=== PATIENT | male | born 1950 | race Caucasian/White ===

== ENCOUNTER 2022-02-09 06:33 | Emergency (ER) | payer MEDICARE, SELFPAY ==
--- NOTE | ~2022-02-09 | XR_ITS ---
EXAMINATION: XR CHEST CLINICAL INFORMATION: Cough COMPARISON: None TECHNIQUE: 2 views of the chest were obtained. FINDINGS: There is some hazy density seen overlying the right lung base which may relate to atelectasis with no confluent airspace disease appreciated. Heart normal size. No evidence of pulmonary edema. No pneumothorax or pleural effusion. XR/XR chest 2V IMPRESSION: No significant acute parenchymal disease.
[2022-02-09 07:39] VITALS: BP 124/70; PULSE 87; RESP 16; TEMP 37.2; O2SAT 95; BMI 33.1
[2022-02-09 09:15] VITALS: PULSE 78; RESP 14; TEMP 36.5; O2SAT 97
[2022-02-09 09:52] LABS: COVID-19 Test Negative (Negative); Influenza A Negative (Negative); Influenza B2 Negative (Negative)
--- NOTE | 2022-02-09 09:57 | ECG_ITS ---
Test Reason : SOB Blood Pressure : / mmHG Vent. Rate : 080 BPM Atrial Rate : 080 BPM P-R Int : 172 ms QRS Dur : 098 ms QT Int : 384 ms P-R-T Axes : 009 -49 006 degrees QTc Int : 442 ms Normal sinus rhythm Left anterior fascicular block Abnormal ECG No previous ECGs available Referred By: Román Wharton Electronically Signed By:WILLIAMS TRAORE MD
[2022-02-09 10:12] VITALS: BP 142/93; PULSE 63; RESP 12; O2SAT 97
--- NOTE | 2022-02-09 10:35 | ED_ITS ---
HPI - General Adult General Chief complaint: General Medical Stated complaint: fever, SoB, history of heart attack Time Seen by Provider: 02/09/22 09:44 History of Present Illness HPI narrative: Patient complains of 1 week of coughing, a development of chest pain with exertion over the last week when he walks 1 flight of stairs, and shortness of breath with exertion when he walks 1 flight of stairs The last time this happened was yesterday 24 hours ago, at this time he is not short of breath or experiencing chest pain The cough is productive He does have a history of heart attack in the past and has had stents placed Related Data Allergies Allergy/AdvReac Type Severity Reaction Status Date / Time No Known Allergies Allergy Verified 02/09/22 09:44 Review of Systems Review of Systems: Positive for chest pain on exertion, shortness of breath on exertion and a cough productive of sputum Negatives are no fever no chills no dizziness no fainting no confusion no feeling faint no headache no neck pain no palpitations no abdominal pain no nausea or vomiting no leg swelling no calf pain or swelling, no numbness no weakness of muscles Yes all other systems are reviewed and are negative PMFSH Past Medical History Source: nursing notes reviewed Medical History (Updated 02/09/22 @ 14:57 by XIOMARA Nguyen) Myocardial infarction Social History Social History Alcohol intake: unknown Patient Tobacco Use Status: Never used Tobacco Use of substances other than those prescribed or required for medical reasons: No Advance Directives: Yes Advance Directives Information Provided: Yes Advance Directives on File: No Physical Exam ED Vital Signs: Vital Signs - 24 hr 02/09/22 07:39 02/09/22 09:15 02/09/22 10:12 Temperature 98.9 F 97.7 F Pulse Rate 87 78 63 Respiratory Rate 16 14 12 Blood Pressure 124/70 142/93 H Pulse Oximetry 95 97 97 Oxygen Delivery Method Room Air Room Air Room Air BMI result Body Mass Index 33.1 General appearance is comfortable no distress The eyes pupils equal round reactive to light extraocular motions are intact, the nose no sinus tenderness no congestion The pharynx is clear without redness swelling or exudate The neck is supple The chest is clear to auscultation bilateral without chest wall tenderness Heart no murmur auscultated Abdomen soft nontender Extremities full range of motion x4 Leg exam there is no edema, there is no calf swelling or tenderness Skin no rash Neuro no focal motor sensory deficits, patient is A&O x3, interaction both expression and comprehension are normal, gait and balance are normal Course Course Course Narrative: Patient remains comfortable and stable throughout ER visit EKG was a normal sinus rhythm with a rate of 80, QRS duration 98 GA interval 172 QT was normal EKG did show left anterior fascicle block and left axis deviation There were no acute ST changes no acute T-wave changes no ST depressions, no evidence of acute ischemia on EKG, no old EKG for comparison CBC showed platelet count of 127, low, hemoglobin and hematocrit were 13.6 and 39.4 No acute findings in the chemistry, B and P was 90 normal Two troponins were checked both were under 3.5 D-dimer was in the normal range at 203, less than 230 Case was discussed with Dr. Deluna who agreed patient could be discharged if close follow-up with Cardiology I called Dr. Pope on-call for [facility] where the patient is followed, he agreed with 2- troponins but a concerning history that the patient should be followed closely this week but did not need to be admitted at this time Chest x-ray was negative Patient likely has a viral infection with his cough but more important and needs to full cardiac evaluation for his increasing shortness of breath with exertion and chest pain with exertion Medical Decision Making Lab Data Lab results reviewed: Yes I reviewed the patient's lab results. Result diagrams: 02/09/22 11:12 02/09/22 11:41 Labs: Lab Results 02/09/22 02/09/22 02/09/22 Range/Units 09:23 09:23 10:29 WBC (4.8-10.8) X10*3/uL RBC (4.60-5.80) X10*6/uL Hgb (14.0-18.0) g/dl Hct (42.0-52.0) % MCV (80.0-98.0) fL MCH (27.0-33.0) pg MCHC (31.0-36.0) g/dl RDW (11.0-16.0) % Plt Count (160-400) X10*3/uL MPV (9.4-12.4) fL Immature Gran % (Auto) (0.0-0.4) % Neut % (Auto) (45-73) % Lymph % (Auto) (20-40) % Isabella % (Auto) (2-11) % Eos % (Auto) (0-4) % Baso % (Auto) (0-2) % Lymph # (Auto) (1.2-4.9) X10*3/uL [place]abella # (Auto) (0.1-1.2) X10*3/uL Eos # (Auto) (0.0-0.4) X10*3/uL Baso # (Auto) (0.0-0.2) X10*3/uL Abs Immat Gran (auto) (0.00-0.03) X10*3/uL Absolute Neuts (auto) (2.0-8.3) x10*3/uL Absolute Nucleated RBC (0.0-0.012) X10*3/uL Nucleated RBC % (auto) (0.0-0.2) /100WBC D-Dimer High Sensitivty NG/ML Sodium (135-145) mmol/L Potassium (3.3-5.1) mmol/L Chloride (96-108) mmol/L Carbon Dioxide (22-29) mmol/L Anion Gap (12-20) BUN (9-16) mg/dL Creatinine (0.5-1.4) mg/dL Estim Creat Clear Calc Estimated GFR Random Glucose (60-115) mg/dL Calcium (8.4-10.2) mg/dL Troponin I High Sens (<3.5-35.0) ng/L B-Natriuretic Peptide (<100) pg/mL COVID-19 (LONA) Negative (Negative) COVID-19 Clin Com See Note Influenza Type A (MILES) Negative (Negative) Influenza Type B (MILES) Negative (Negative) Influenza A & B Note See Note S. pyogenes GrpA MILES Negative (Negative) 02/09/22 02/09/22 02/09/22 Range/Units 11:12 11:12 11:12 WBC 11.4 H (4.8-10.8) X10*3/uL RBC 4.29 L (4.60-5.80) X10*6/uL Hgb 13.6 L (14.0-18.0) g/dl Hct 39.4 L (42.0-52.0) % MCV 91.8 (80.0-98.0) fL MCH 31.7 (27.0-33.0) pg MCHC 34.5 (31.0-36.0) g/dl RDW 13.0 (11.0-16.0) % Plt Count 127 L (160-400) X10*3/uL MPV 9.7 (9.4-12.4) fL Immature Gran % (Auto) 0.4 (0.0-0.4) % Neut % (Auto) 78.2 H (45-73) % Lymph % (Auto) 11.8 L (20-40) % Isabella % (Auto) 8.9 (2-11) % Eos % (Auto) 0.4 (0-4) % Baso % (Auto) 0.3 (0-2) % Lymph # (Auto) 1.4 (1.2-4.9) X10*3/uL Isabella # (Auto) 1.0 (0.1-1.2) X10*3/uL Eos # (Auto) 0.1 (0.0-0.4) X10*3/uL Baso # (Auto) 0.0 (0.0-0.2) X10*3/uL Abs Immat Gran (auto) 0.05 H (0.00-0.03) X10*3/uL Absolute Neuts (auto) 8.9 H (2.0-8.3) x10*3/uL Absolute Nucleated RBC 0.000 (0.0-0.012) X10*3/uL Nucleated RBC % (auto) 0.0 (0.0-0.2) /100WBC D-Dimer High Sensitivty 203 NG/ML Sodium (135-145) mmol/L Potassium (3.3-5.1) mmol/L Chloride (96-108) mmol/L Carbon Dioxide (22-29) mmol/L Anion Gap (12-20) BUN (9-16) mg/dL Creatinine (0.5-1.4) mg/dL Estim Creat Clear Calc Estimated GFR Random Glucose (60-115) mg/dL Calcium (8.4-10.2) mg/dL Troponin I High Sens < 3.5 (<3.5-35.0) ng/L B-Natriuretic Peptide 90 (<100) pg/mL COVID-19 (LONA) (Negative) COVID-19 Clin Com Influenza Type A (MILES) (Negative) Influenza Type B (MILES) (Negative) Influenza A & B Note S. pyogenes GrpA MILES (Negative) 02/09/22 02/09/22 Range/Units 11:41 14:00 WBC (4.8-10.8) X10*3/uL RBC (4.60-5.80) X10*6/uL Hgb (14.0-18.0) g/dl Hct (42.0-52.0) % MCV (80.0-98.0) fL MCH (27.0-33.0) pg MCHC (31.0-36.0) g/dl RDW (11.0-16.0) % Plt Count (160-400) X10*3/uL MPV (9.4-12.4) fL Immature Gran % (Auto) (0.0-0.4) % Neut % (Auto) (45-73) % Lymph % (Auto) (20-40) % Isabella % (Auto) (2-11) % Eos % (Auto) (0-4) % Baso % (Auto) (0-2) % Lymph # (Auto) (1.2-4.9) X10*3/uL Isabella # (Auto) (0.1-1.2) X10*3/uL Eos # (Auto) (0.0-0.4) X10*3/uL Baso # (Auto) (0.0-0.2) X10*3/uL Abs Immat Gran (auto) (0.00-0.03) X10*3/uL Absolute Neuts (auto) (2.0-8.3) x10*3/uL Absolute Nucleated RBC (0.0-0.012) X10*3/uL Nucleated RBC % (auto) (0.0-0.2) /100WBC D-Dimer High Sensitivty NG/ML Sodium 140 (135-145) mmol/L Potassium 4.7 (3.3-5.1) mmol/L Chloride 107 (96-108) mmol/L Carbon Dioxide 26 (22-29) mmol/L Anion Gap 12 (12-20) BUN 16 (9-16) mg/dL Creatinine 0.97 (0.5-1.4) mg/dL Estim Creat Clear Calc 79.6 Estimated GFR > 60 Random Glucose 103 (60-115) mg/dL Calcium 8.5 (8.4-10.2) mg/dL Troponin I High Sens < 3.5 (<3.5-35.0) ng/L B-Natriuretic Peptide (<100) pg/mL COVID-19 (LONA) (Negative) COVID-19 Clin Com Influenza Type A (MILES) (Negative) Influenza Type B (MILES) (Negative) Influenza A & B Note S. pyogenes GrpA MILES (Negative) Discharge Plan Discharge Clinical Impression: Chest pain, Shortness of breath, Cough Patient Disposition: Home, Self-Care Additional Instructions: I called the health and wellness advisor at [facility], Dr. Pope He said when [facility] cardiology closed [facility] took over the care of those patients He said you would be seen in an urgent appointment this week because of your symptoms of chest pain with exertion and shortness of breath with exertion So call [facility] phone Today we did not find signs of a heart attack, EKG and troponin testing was okay But we are worried these symptoms could be warning signs so do not exert heavily follow closely with cardiologists Most important if you get more chest pain return to the ER Interventions: ED Discharge Assessment Last Done: 02/09/22 15:04 Discharge Date/Time: 02/09/22 15:05
[2022-02-09 10:48] LABS: IDNOW Serial# 08D9AD1C; Strep A Nucleic Acid Negative (Negative)
[2022-02-09 11:17] LABS: MANUAL DIFF FLAG NO
[2022-02-09] MEDS: Aspirin 81 MG TAB.CHEW PO (11:19)
[2022-02-09 11:20] LABS: Basophils Percent Auto 0.3 % (0-2); Eosinophils Absolute Auto 0.1 X10*3/uL (0.0-0.4); Eosinophils Percent Auto 0.4 % (0-4); Hematocrit 39.4 % (42.0-52.0); Hemoglobin 13.6 g/dl (14.0-18.0); Imm Gran Abs Auto 0.05 X10*3/uL (0.00-0.03); Imm Gran Pct Auto 0.4 % (0.0-0.4); Lymphocytes Absolute Auto 1.4 X10*3/uL (1.2-4.9); Lymphocytes Percent Auto 11.8 % (20-40); Mean Corpuscular HGB Conc 34.5 g/dl (31.0-36.0); Mean Corpuscular Hemoglobin 31.7 pg (27.0-33.0); Mean Corpuscular Volume 91.8 fL (80.0-98.0); Mean Platelet Volume 9.7 fL (9.4-12.4); Monocytes Percent Auto 8.9 % (2-11); Neutrophils Absolute Auto 8.9 x10*3/uL (2.0-8.3); Neutrophils Percent Auto 78.2 % (45-73); Platelet Count 127 X10*3/uL (160-400); Red Blood Count 4.29 X10*6/uL (4.60-5.80); White Blood Count 11.4 X10*3/uL (4.8-10.8)
--- NOTE | 2022-02-09 11:21 | PC.NURSE ---
pt alert and oriented x 3. states has some SOB. Lungs clear. Pt swabbed for covid, flu, strep. Later conversation with PA suggests chest pain with exertion, also diaphoresis per patient and daughter. Pt moved [place] [facility] [place] and workup. Charge nurse made aware. Family aware of change in approach.
--- NOTE | 2022-02-09 11:27 | PC.NURSE ---
vital signs: BP 138/79; HR 69; SAO2 97%, RR 21. CM shows NSR
[2022-02-09 11:41] LABS: D Dimer High Sensitivity 203 NG/ML
[2022-02-09 11:47] LABS: B Type Natriuretic Peptide 90 pg/mL (<100); Troponin-I High Sensitivity < 3.5 ng/L (<3.5-35.0)
[2022-02-09 12:01] LABS: Anion Gap 12 (12-20); Blood Urea Nitrogen 16 mg/dL (9-16); Calcium 8.5 mg/dL (8.4-10.2); Carbon Dioxide 26 mmol/L (22-29); Chloride 107 mmol/L (96-108); Creatinine Clr Calc Pharmacy 79.6; Estimated Glomerular Filt Rate > 60; Glucose Random 103 mg/dL (60-115); Potassium 4.7 mmol/L (3.3-5.1); Sodium 140 mmol/L (135-145)
[2022-02-09 14:24] LABS: Troponin-I High Sensitivity < 3.5 ng/L (<3.5-35.0)
--- NOTE | 2022-02-09 14:46 | PC.NURSE ---
pulse 78, o2 97 room air, resp 21, blood pressure 158/85 right upper arm supine. temp 98.4 oral SG
== END 2022-02-09 15:05 | disposition home or self-care (01) ==
PROVIDERS: Physician Assistant Medical; Emergency Provider Emergency Medicine
DX: R07.9 Chest pain, unspecified (principal); R06.02 Shortness of breath; R05.9 Cough, unspecified; Z20.822 Contact with and (suspected) exposure to COVID-19
CPT/HCPCS: 36415; 71046; 80048; 83880; 84484; 85025; 85379; 87502; 87635; 87651; 93005; 99283; 99284

== ENCOUNTER 2022-02-25 19:02 | Emergency (ER) | payer MEDICARE, SELFPAY | END 2022-02-25 19:29 | disposition left against medical advice (07) | PROVIDERS: Emergency Provider Emergency Medicine | DX: S81.819A Laceration without foreign body, unspecified lower leg, initial encounter (principal); X58.XXXA Exposure to other specified factors, initial encounter; Y93.9 Activity, unspecified; Y92.9 Unspecified place or not applicable; Y99.9 Unspecified external cause status ==

== ENCOUNTER → 2022-12-31 07:29 | Outpatient (BNVA) | payer MEDICARE, SELFPAY | PROVIDERS: PCP Internal Medicine; Visit Provider Psychiatry & Neurology Neurology | DX: G50.0 Trigeminal neuralgia (principal) | CPT/HCPCS: 99202 ==

== ENCOUNTER 2023-02-05 15:50 | Outpatient (REF) | payer MEDICARE, SELFPAY ==
--- NOTE | ~2023-02-05 | MR_ITS ---
EXAMINATION: MR BRAIN WITHOUT AND WITH CONTRAST CLINICAL INFORMATION: Trigeminal neuralgia COMPARISON: None TECHNIQUE: Multiplanar multisequence MR imaging of the brain was obtained without and following the administration of 10 mL Gadavist intravenous contrast. FINDINGS: There is no vascular compression of the cisternal segments of the trigeminal nerves. The CSF in Meckel's cave is preserved. The foramina ovale are normal. No cerebellopontine angle lesion is seen. There is no abnormal leptomeningeal enhancement corresponding to basilar cisterns. The third division of the trigeminal nerve is normal along its course in the cnc machinist 2nd shift spaces. No marrow signal abnormality is seen within the mandible. There is no abnormal enhancement or edematous change corresponding to the second division of the trigeminal nerve within the infraorbital foramen or at the level of foramen rotundum. The cavernous sinuses opacify symmetrically. The orbits are normal. There is no acute infarct on diffusion-weighted imaging. No extra-axial collection or mass effect/herniation. There are several scattered foci of nonspecific supratentorial white matter T2/FLAIR signal abnormality. No hydrocephalus. The ventricles are normal in morphology and size. No abnormal parenchymal or extra-axial enhancement. The major flow voids at the skull base are preserved. The midline structures are normal. The cerebellar tonsils are normally positioned. The craniocervical junction is normal. Marrow signal is within normal limits. The visualized soft tissues are without significant abnormality. No signal abnormality within the paranasal sinuses or within the mastoid air cells. MR/MR head/brain wo/w con IMPRESSION: Unremarkable contrast-enhanced MRI of the brain. No abnormality along the course of the trigeminal nerves.
== END 2023-02-05 15:51 | disposition home or self-care (01) ==
LOC: HO.MRI 15:50
PROVIDERS: PCP Internal Medicine; Visit Provider Psychiatry & Neurology Neurology
DX: G50.0 Trigeminal neuralgia (principal)
CPT/HCPCS: 70553; A9585

== ENCOUNTER 2023-02-14 14:10 | Emergency (ER) | payer MEDICARE, SELFPAY ==
--- NOTE | ~2023-02-14 | XR_ITS ---
EXAMINATION: XR CHEST CLINICAL INFORMATION: Shortness of breath COMPARISON: Chest x-ray February 09, 2022 TECHNIQUE: Frontal view of the chest was obtained. FINDINGS: Cardiac silhouette is normal in size. The lungs are adequately aerated. Subtle linear opacities within the right lung base are nonspecific but most suggestive of atelectasis. There is a subtle patchy opacity projecting over the right midlung which is nonspecific. No pleural effusion. No pneumothorax. XR/XR chest 1V IMPRESSION: Subtle patchy opacity projecting over the right midlung is nonspecific but suspected to represent atelectasis. A developing infiltrate is also within the differential. Follow-up imaging recommended status post treatment to ensure resolution. Cross-sectional imaging can also be obtained at this time if felt clinically indicated.
--- NOTE | 2023-02-14 14:20 | ECG_ITS ---
Test Reason : SOB Blood Pressure : / mmHG Vent. Rate : 075 BPM Atrial Rate : 075 BPM P-R Int : 172 ms QRS Dur : 098 ms QT Int : 384 ms P-R-T Axes : 004 -57 005 degrees QTc Int : 428 ms Normal sinus rhythm Left anterior fascicular block Abnormal ECG When compared with ECG of 09-FEB-2022 06:56, No significant change was found Referred By: William Contreras Electronically Signed By:Yannick Ohara
[2023-02-14 15:25] LABS: MANUAL DIFF FLAG NO
[2023-02-14 15:28] LABS: Basophils Percent Auto 0.3 % (0-2); Eosinophils Percent Auto 0.3 % (0-4); Hemoglobin 13.7 g/dl (14.0-18.0); Imm Gran Abs Auto 0.03 X10*3/uL (0.00-0.03); Imm Gran Pct Auto 0.5 % (0.0-0.4); Lymphocytes Absolute Auto 0.7 X10*3/uL (1.2-4.9); Lymphocytes Percent Auto 12.1 % (20-40); Mean Corpuscular HGB Conc 34.3 g/dl (31.0-36.0); Mean Corpuscular Hemoglobin 31.3 pg (27.0-33.0); Mean Corpuscular Volume 91.3 fL (80.0-98.0); Mean Platelet Volume 9.1 fL (9.4-12.4); Monocytes Absolute Auto 0.5 X10*3/uL (0.1-1.2); Monocytes Percent Auto 7.5 % (2-11); Neutrophils Absolute Auto 4.8 x10*3/uL (2.0-8.3); Neutrophils Percent Auto 79.3 % (45-73); Platelet Count 111 X10*3/uL (160-400); Red Blood Count 4.38 X10*6/uL (4.60-5.80); Red Cell Distribution Width 12.3 % (11.0-16.0)
[2023-02-14 15:29] VITALS: BP 140/83; PULSE 81; RESP 16; TEMP 37.5; O2SAT 95; BMI 35.2
--- NOTE | 2023-02-14 15:29 | ED_ITS ---
HPI - General Adult General Chief complaint: Upper Respiratory Symptoms Stated complaint: Diff Breathing Time Seen by Provider: 02/14/23 18:18 Source: patient and family Mode of arrival: ambulatory Limitations: no limitations History of Present Illness HPI narrative: 72 yo male with hx of CAD, HTN, HLD here with not feeling well fevers, chills and sick contact post travel to [place] stayed in hotel. has dry cough as well. 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, doesn't feel well Onset (ago): day(s) (1) Severity: mild Relieving factors: none Exacerbating factors: none Associated symptoms: cough, fever/chills and malaise Treatments prior to arrival: none Related Data Home Medications Medication Instructions Recorded Confirmed aspirin 81 mg tablet,delayed 81 mg PO DAILY 12/31/22 12/31/22 release atorvastatin 80 mg tablet 80 mg PO DAILY 12/31/22 12/31/22 lisinopril 10 mg tablet 10 mg PO DAILY 12/31/22 12/31/22 metoprolol succinate 25 mg 25 mg PO DAILY 12/31/22 12/31/22 tablet,extended release 24 hr Previous Rx's Medication Instructions Recorded carbamazepine 200 mg 200 mg PO BID #60 tabs 12/31/22 tablet,extended release,12 hr (Tegretol XR) levofloxacin 750 mg tablet 750 mg PO DAILY #6 tabs 02/14/23 Allergies Allergy/AdvReac Type Severity Reaction Status Date / Time No Known Allergies Allergy Verified 02/14/23 15:31 Review of Systems Review of Systems: Constitutional : pos Fever, pos Chills, No Fatigue ENT/Mouth : No sore throat, No Rhinorrhea Eyes: No Eye Pain, No Swelling, No Redness Cardiovascular : No Chest Pain, No SOB, No Dyspnea on Exertion Respiratory : pos Cough, No Sputum Gastrointestinal : No Nausea, No Vomiting, No Diarrhea, No abdominal Pain Genitourinary : No Dysuria, No Urinary Frequency, No Hematuria, Musculoskeletal : No joint pain, No Myalgias, No Joint Swelling Skin : No Skin Lesions, No rash Neuro : No Weakness, No Numbness, No Dizziness, positive Headache All other systems reviewed and are negative [facility] Past Medical History Attestation statement: The following information was validated with the patient. Medical History CAD (coronary artery disease) CVA (cerebral vascular accident) GERD (gastroesophageal reflux disease) HTN (hypertension) Hyperlipidemia Myocardial infarction MIKE on CPAP Prostate cancer Surgical History Hx of appendectomy Family History Family History (Updated 12/31/22 @ 07:48 by Flora Henao CMA) Father Cancer Mother Hypertension Brother Cancer Social History Social History Alcohol intake: never Patient Tobacco Use Status: Never used Tobacco Advance Directives: No Advance Directives Information Provided: No Physical Exam ED Vital Signs: Vital Signs - 24 hr 02/14/23 15:29 02/14/23 19:07 Temperature 99.5 F Pulse Rate 81 84 Respiratory Rate 16 18 Blood Pressure 140/83 H 144/90 H Pulse Oximetry 95 95 Oxygen Delivery Method Room Air Room Air BMI result Body Mass Index 35.2 Appearance: Alert. Oriented X3. No acute distress. Eyes: Pupils equal, round and reactive to light. ENT: Pharynx normal. Neck: Normal inspection. Neck supple. CVS: Normal heart rate and rhythm. Pulses normal. Respiratory: No respiratory distress. Breath sounds mildly diminished R lung ba se Abdomen: Soft and nontender. Skin: Skin warm and dry. Normal skin color. Normal skin turgor. Extremities: No lower extremity edema. No calf ttp Neuro: Oriented X 3. No motor deficit. No sensory deficit. Course Course Course Narrative: This is an RME: Additional HPI, ROS, PE not included below will be deferred to primary provider. 72 year old male presents w/ subjective fevers, cough, cp X a few days. Concerned for pna. No known sick contacts. No SOB, nausea, vomiting, diarrhea. Plan- labs, imaging, ekg Reevaluation(s) Reevaluation #1: CURB 65 score is 1 Medications Administered Discontinued Medications Generic Name Dose Route Start Last Admin Trade Name Freq PRN Reason Stop Dose Admin Levofloxacin 750 mg 02/14/23 18:36 02/14/23 18:55 Levofloxacin 750 Mg Tablet PO 02/14/23 18:37 750 mg ONCE ONE Administration Medical Decision Making Medical Decision Making MDM Narrative: 72 yo male with hx of CAD, HTN, HLD went on vacation and comes back from [place] with cough, fevers, not feeling well but tolerating PO and no diff breathing he has a dry cough did stay in hotel room with air conditioner - young 3 year old family member with similar symptoms. Labs ordered and stable, O2 normal, COVID negative he has no CP - EKG nonischemic at this time given CXR will cover with levofloxacin concern for legionella will DC home with precautions. Differential Diagnosis Differential Diagnoses: The differential diagnosis associated with the presentation includes viral syndrome, legionella, pneumonia Admission/Observation Consideration of admission/observation: Escalation of care including admi ssion/observation considered no hypoxia, tolerating PO, not toxic appearing stable for outpatient management has no diabetes or underlying lung disease Lab Data MDM Lab Attestation statement: I reviewed the patient's lab results. 02/14/23 15:16 02/14/23 15:16 Labs: Lab Results 02/14/23 02/14/23 02/14/23 Range/Units 15:16 15:16 15:16 WBC 6.0 (4.8-10.8) X10*3/uL RBC 4.38 L (4.60-5.80) X10*6/uL Hgb 13.7 L (14.0-18.0) g/dl Hct 40.0 L (42.0-52.0) % MCV 91.3 (80.0-98.0) fL MCH 31.3 (27.0-33.0) pg MCHC 34.3 (31.0-36.0) g/dl RDW 12.3 (11.0-16.0) % Plt Count 111 L (160-400) X10*3/uL MPV 9.1 L (9.4-12.4) fL Immature Gran % (Auto) 0.5 H (0.0-0.4) % Neut % (Auto) 79.3 H (45-73) % Lymph % (Auto) 12.1 L (20-40) % [place] % (Auto) 7.5 (2-11) % Eos % (Auto) 0.3 (0-4) % Baso % (Auto) 0.3 (0-2) % Lymph # (Auto) 0.7 L (1.2-4.9) X10*3/uL [place] # (Auto) 0.5 (0.1-1.2) X10*3/uL Eos # (Auto) 0.0 (0.0-0.4) X10*3/uL Baso # (Auto) 0.0 (0.0-0.2) X10*3/uL Abs Immat Gran (auto) 0.03 (0.00-0.03) X10*3/uL Absolute Neuts (auto) 4.8 (2.0-8.3) x10*3/uL Absolute Nucleated RBC 0.000 (0.0-0.012) X10*3/uL Nucleated RBC % (auto) 0.0 (0.0-0.2) /100WBC Sodium 136 (135-145) mmol/L Potassium 4.8 (3.3-5.1) mmol/L Chloride 105 (96-108) mmol/L Carbon Dioxide 24 (22-29) mmol/L Anion Gap 12 (12-20) BUN 16 (9-16) mg/dL Creatinine 1.09 (0.5-1.4) mg/dL Estim Creat Clear Calc 69.6 Estimated GFR > 60 Random Glucose 103 (60-115) mg/dL Calcium 9.4 D (8.4-10.2) mg/dL Magnesium 1.9 (1.6-2.6) mg/dL Total Bilirubin 0.4 (0.0-1.0) mg/dL AST 27 (5-37) U/L ALT 16 (0-40) U/L Alkaline Phosphatase 105 (39-117) U/L Troponin I High Sens 3.3 (<3.5-35.0) ng/L B-Natriuretic Peptide (<100) pg/mL Total Protein 7.8 (6.5-8.0) g/dL Albumin 3.7 (3.5-5.0) g/dL COVID-19 (LONA) (Negative) COVID-19 Clin Com 02/14/23 02/14/23 Range/Units 15:16 15:16 WBC (4.8-10.8) X10*3/uL RBC (4.60-5.80) X10*6/uL Hgb (14.0-18.0) g/dl Hct (42.0-52.0) % MCV (80.0-98.0) fL MCH (27.0-33.0) pg MCHC (31.0-36.0) g/dl RDW (11.0-16.0) % Plt Count (160-400) X10*3/uL MPV (9.4-12.4) fL Immature Gran % (Auto) (0.0-0.4) % Neut % (Auto) (45-73) % Lymph % (Auto) (20-40) % [place] % (Auto) (2-11) % Eos % (Auto) (0-4) % Baso % (Auto) (0-2) % Lymph # (Auto) (1.2-4.9) X10*3/uL [place] # (Auto) (0.1-1.2) X10*3/uL Eos # (Auto) (0.0-0.4) X10*3/uL Baso # (Auto) (0.0-0.2) X10*3/uL Abs Immat Gran (auto) (0.00-0.03) X10*3/uL Absolute Neuts (auto) (2.0-8.3) x10*3/uL Absolute Nucleated RBC (0.0-0.012) X10*3/uL Nucleated RBC % (auto) (0.0-0.2) /100WBC Sodium (135-145) mmol/L Potassium (3.3-5.1) mmol/L Chloride (96-108) mmol/L Carbon Dioxide (22-29) mmol/L Anion Gap (12-20) BUN (9-16) mg/dL Creatinine (0.5-1.4) mg/dL Estim Creat Clear Calc Estimated GFR Random Glucose (60-115) mg/dL Calcium (8.4-10.2) mg/dL Magnesium (1.6-2.6) mg/dL Total Bilirubin (0.0-1.0) mg/dL AST (5-37) U/L ALT (0-40) U/L Alkaline Phosphatase (39-117) U/L Troponin I High Sens (<3.5-35.0) ng/L B-Natriuretic Peptide 34 (<100) pg/mL Total Protein (6.5-8.0) g/dL Albumin (3.5-5.0) g/dL COVID-19 (LONA) Negative (Negative) COVID-19 Clin Com See Note Independent Interpretation I performed an independent interpretation of an: EKG and Plain X-Ray (R lung opacity) Interpretation: Rate: 75 Rhythm: NSR [place]: left Normal P waves. Normal ILAN. Normal QRS complex. ST T wave : inverted t wave III, no LUIS qTC: normal prior studies: no acute ischemia The study has been interpreted contemporaneously by me. . Radiology Impression Discussion of test interpretation with radiology: I have reviewed the radiologist's reading. Independent Historian Clinical information obtained from an independent historian. History obtained from or confirmed by: Other External Record Review External record reviewed: Office record Prescription Management I considered prescription management with: Antibiotic Discharge Plan Discharge Clinical Impression: Pneumonia Patient Disposition: Home, Self-Care Instructions: Community Acquired Pneumonia (ED) Additional Instructions: return for worsening symptoms, fevers, difficulty breathing, chest pain, poor oral intake or any other concerns. take a probiotic while on antibiotics. levofloxacin can cause tendon issues do not perform strenuous exercise Prescriptions: New levofloxacin 750 mg tablet 750 mg PO DAILY Qty: 6 0RF Rx Instructions: start on 02/13 No Action metoprolol succinate 25 mg tablet extended release 24 hr 25 mg PO DAILY aspirin 81 mg tablet,delayed release (DR/EC) 81 mg PO DAILY lisinopril 10 mg tablet 10 mg PO DAILY atorvastatin 80 mg tablet 80 mg PO DAILY carbamazepine [Tegretol XR] 200 mg tablet extended release 12 hr 200 mg PO BID Qty: 60 2RF Interventions: ED Discharge Assessment Last Done: 02/14/23 19:08 Discharge Date/Time: 02/14/23 19:10
[2023-02-14 15:55] LABS: B Type Natriuretic Peptide 34 pg/mL (<100)
[2023-02-14 15:57] LABS: Troponin-I High Sensitivity 3.3 ng/L (<3.5-35.0)
[2023-02-14 16:04] LABS: Alanine Aminotransferase 16 U/L (0-40); Albumin Level 3.7 g/dL (3.5-5.0); Alkaline Phosphatase 105 U/L (39-117); Anion Gap 12 (12-20); Aspartate Amino Transferase 27 U/L (5-37); Bilirubin Total 0.4 mg/dL (0.0-1.0); Blood Urea Nitrogen 16 mg/dL (9-16); Calcium 9.4 mg/dL (8.4-10.2); Carbon Dioxide 24 mmol/L (22-29); Chloride 105 mmol/L (96-108); Creatinine Clr Calc Pharmacy 69.6; Estimated Glomerular Filt Rate > 60; Glucose Random 103 mg/dL (60-115); Magnesium 1.9 mg/dL (1.6-2.6); Potassium 4.8 mmol/L (3.3-5.1); Sodium 136 mmol/L (135-145); Total Protein 7.8 g/dL (6.5-8.0)
[2023-02-14 16:43] LABS: COVID-19 Test Negative (Negative); IDNOW Serial# 08D9AD1C
[2023-02-14] MEDS: levoFLOXacin 750 MG TABLET PO (18:55)
[2023-02-14 19:07] VITALS: BP 144/90; PULSE 84; RESP 18; O2SAT 95
== END 2023-02-14 19:10 | disposition home or self-care (01) ==
PROVIDERS: Physician Assistant; Emergency Provider Emergency Medicine
DX: J18.9 Pneumonia, unspecified organism (principal); I10 Essential (primary) hypertension; E78.5 Hyperlipidemia, unspecified; Z20.822 Contact with and (suspected) exposure to COVID-19; Z86.73 Personal history of transient ischemic attack (TIA), and cerebral infarction without residual deficits; Z85.46 Personal history of malignant neoplasm of prostate; Z79.82 Long term (current) use of aspirin; Z79.899 Other long term (current) drug therapy
CPT/HCPCS: 71045; 80053; 83735; 83880; 84484; 85025; 87635; 93005; 99283; 99284

== ENCOUNTER → 2023-02-14 14:20 | Outpatient (BNV) | payer MEDICARE, SELFPAY | PROVIDERS: Emergency Provider Emergency Medicine; Visit Provider Internal Medicine Cardiovascular Disease | DX: I44.4 Left anterior fascicular block (principal); R94.31 Abnormal electrocardiogram [ECG] [EKG] | CPT/HCPCS: 93010 ==

== ENCOUNTER → 2023-02-25 10:52 | Outpatient (BNVA) | payer MEDICARE, SELFPAY | PROVIDERS: Visit Provider Psychiatry & Neurology Neurology | DX: G50.0 Trigeminal neuralgia (principal) | CPT/HCPCS: 99212 ==

== ENCOUNTER 2023-02-25 10:54 | Outpatient (AMB) | payer MEDICARE, SELFPAY ==
--- NOTE | 2023-02-25 10:54 | A.OFFVIS_ITS ---
Intake Vital Signs 02/25/23 10:55 Height 5 ft 8 in Weight 223 lb BMI 33.9 BP 110/80 Blood Pressure Location Rt brachial Position Sitting Pulse 75 Pulse Source Pulse Oximeter Pulse Oximetry (%) 96 Oxygen Delivery Method Room Air Intake Visit Reasons: f/u NEURALGIA - LVM to r/s MD off Intake Note: Pt presents as a f/u for Neuralgia. Differential Repairer Required: No Allergies No Known Allergies Allergy (Verified 02/25/23 11:00) Medication List - Last Reconciled 02/25/23 by Madeline Baron MD aspirin 81 mg PO DAILY atorvastatin 80 mg PO DAILY carbamazepine ER (Tegretol XR) 200 mg PO BID levofloxacin 750 mg PO DAILY lisinopril 10 mg PO DAILY metoprolol succinate ER 25 mg PO DAILY HPI HPI Comments History of Present Illness Details 72y/o Kuwaiti speaking male comes for follow up of trigeminal neuralgia. His daughter helps with today evaluation.He responded to tegretol 200mg bid with no pain until 1 week ago the pain has recurred. MRI brain with gildardo is normal. Labs were normal It started about 1 year ago as an episodic pain but now it is a constant pain for past 4 months. He describes the pain as electric shock like pain in his left nasolabial area. The pain is worse when he touches , shaving, cold air, chewing, brushing his teeth etc. He went to a dentist - he did not think it was dental..He denies any double vision, speech issues, vertigo , dysphagia etc. He denies any tongue numbness. He has h/o MIKE on CPAP. He has h/o CVA - /30 years ago . [facility] Medical History CAD (coronary artery disease) CVA (cerebral vascular accident) GERD (gastroesophageal reflux disease) HTN (hypertension) Hyperlipidemia Myocardial infarction MIKE on CPAP Prostate cancer Surgical History Hx of appendectomy Family History Father Cancer Mother Hypertension Brother Cancer Social History Alcohol intake: never Patient Tobacco Use Status: Never used Tobacco Physical Exam Vital Signs: Last Vital Signs Pulse 75 02/25/23 10:55 BP 110/80 02/25/23 10:55 Pulse Ox 96 02/25/23 10:55 Oxygen Delivery Method Room Air 02/25/23 10:55 BMI result Body Mass Index 33.9 Const General: cooperative, healthy appearing and comfortable Nutritional Appearance: overweight Orientation/consciousness: patient oriented x3 Neuro Other: hyperesthesia in left upper lip, nasolabial area General: patient oriented x3, tone normal, moves all extremities and no focal motor deficits Cranial nerves: Yes Facial sensation intact/muscles of mastication intact, Yes Bilaterally intact EOM present, Yes Nystagmus not present, Yes Normal facial strength present, Yes Midline tongue present, Yes Symmetric palate elevation present and Yes Ability to bilaterally elevate shoulders present Cognition (Neuro): normal cognition Gait exam (Neuro): Normal gait present Motor exam (neuro): 5/5 motor strength present throughout and Normal motor muscle tone present throughout Coordination: [id number] test normal Assessment & Plan Assessment & Plan (1) Trigeminal neuralgia: Comment: left V 2 Code(s): G50.0 - Trigeminal neuralgia Plan Increase tegretol XR 200mg qama nd 400mg qhs and f/u will monitor sodium and CBC Medications: Changed From carbamazepine ER (Tegretol XR) 200 mg PO BID 60 tabs 2RF To carbamazepine ER (Tegretol XR) 1 tab qama nd 2 tabs qhs orally 2 times a day; 90 tabs 3RF Coding Level of Care Code Est Pt Level 4 (22404) Diagnoses Trigeminal neuralgia G50.0
[2023-02-25 10:55] VITALS: BP 110/80; PULSE 75; O2SAT 96; BMI 33.9
== END 2023-02-25 11:16 | disposition home or self-care (01) ==
PROVIDERS: Visit Provider Psychiatry & Neurology Neurology
DX: G50.0 Trigeminal neuralgia (principal)
CPT/HCPCS: 99214

== ENCOUNTER 2023-07-08 08:17 | Outpatient (AMB) | payer MEDICARE, SELFPAY ==
[2023-07-08 08:36] VITALS: BP 122/80; PULSE 77; RESP 16; O2SAT 97; BMI 34.0
--- NOTE | 2023-07-08 08:36 | A.OFFVIS_ITS ---
Intake Vital Signs 07/08/23 08:36 Height 5 ft 8 in Weight 223 lb 8 oz BMI 34.0 BP 122/80 Blood Pressure Location Rt brachial Position Sitting Respiration 16 Pulse 77 Pulse Source Pulse Oximeter Pulse Oximetry (%) 97 Oxygen Delivery Method Room Air Intake Visit Reasons: 4m follow up NEURALGIA-LVM Intake Note: Pt presents for a 4 month follow up for neuralgia. Jeep Driver Required: No Allergies No Known Allergies Allergy (Verified 07/08/23 08:36) Medication List - Last Reconciled 07/08/23 by Madeline Baron MD aspirin 81 mg PO DAILY atorvastatin 80 mg PO DAILY carbamazepine ER (Tegretol XR) 1 tab qama nd 2 tabs qhs orally 2 times a day; 90 days lisinopril 10 mg PO DAILY metoprolol succinate ER 25 mg PO DAILY HPI HPI Comments History of Present Illness Details 73y/o Israeli speaking male comes for fo llow up of trigeminal neuralgia. His daughter helps with today evaluation.He responded to tegretol 200mg qam and 400mg qhs with no pain. MRI brain with gildardo is normal. Labs were normal It started about 1 year ago as an episodic pain but now it is a constant pain for past 4 months. He describes the pain as electric shock like pain in his left nasolabial area. The pain is worse when he touches , shaving, cold air, chewing, brushing his teeth etc. He went to a dentist - he did not think it was dental..He denies any double vision, speech issues, vertigo , dysphagia etc. He denies any tongue numbness. He has h/o MIKE on CPAP. He has h/o CVA - /30 years ago . [facility] Medical History Prostate cancer GERD (gastroesophageal reflux disease) MIKE on CPAP CAD (coronary artery disease) Hyperlipidemia CVA (cerebral vascular accident) HTN (hypertension) Myocardial infarction Surgical History Hx of appendectomy Family History Father Cancer Mother Hypertension Brother Cancer Social History Alcohol intake: never Patient Tobacco Use Status: Never used Tobacco Physical Exam Vital Signs: Last Vital Signs Pulse 77 07/08/23 08:36 Resp 16 07/08/23 08:36 BP 122/80 07/08/23 08:36 Pulse Ox 97 07/08/23 08:36 Oxygen Delivery Method Room Air 07/08/23 08:36 BMI result Body Mass Index 34.0 Const General: cooperative, healthy appearing and comfortable Nutritional Appearance: overweight Orientation/consciousness: patient oriented x3 Neuro Other: hyperesthesia in left upper lip, nasolabial area General: patient oriented x3, tone normal, moves all extremities and no focal motor deficits Cranial nerves: Yes Facial sensation intact/muscles of mastication intact, Yes Bilaterally intact EOM present, Yes Nystagmus not present, Yes Normal facial strength present, Yes Midline tongue present, Yes Symmetric palate elevation present and Yes Ability to bilaterally elevate shoulders present Cognition (Neuro): normal cognition Gait exam (Neuro): Normal gait present Motor exam (neuro): 5/5 motor strength present throughout and Normal motor muscle tone present throughout Coordination: [id number] test normal Assessment & Plan Assessment & Plan (1) Trigeminal neuralgia: Comment: left V 2 Code(s): G50.0 - Trigeminal neuralgia Plan Continue tegretol XR 200mg qama nd 400mg qhs and f/u will monitor sodium and CBC Orders: Orders Comprehensive Met. Panel Today G50.0 - Trigeminal neuralgia Complete Blood Count Auto Diff Today G50.0 - Trigeminal neuralgia Medications: Changed From carbamazepine ER (Tegretol XR) 1 tab qama nd 2 tabs qhs orally 2 times a day; 90 tabs 3RF To carbamazepine ER (Tegretol XR) 1 tab qama nd 2 tabs qhs orally 2 times a day; 270 tabs 3RF 90 days Coding Level of Care Code Est Pt Level 4 (15375) Diagnoses Trigeminal neuralgia G50.0
== END 2023-07-08 09:03 | disposition home or self-care (01) ==
PROVIDERS: Visit Provider Psychiatry & Neurology Neurology
DX: G50.0 Trigeminal neuralgia (principal)
CPT/HCPCS: 99214

== ENCOUNTER → 2023-07-08 08:17 | Outpatient (BNVA) | payer MEDICARE, SELFPAY | PROVIDERS: Visit Provider Psychiatry & Neurology Neurology | DX: G50.0 Trigeminal neuralgia (principal); Z79.899 Other long term (current) drug therapy | CPT/HCPCS: 99212 ==

== ENCOUNTER 2024-03-02 07:42 | Outpatient (AMB) | payer MEDICARE, SELFPAY ==
--- NOTE | 2024-03-02 07:49 | A.OFFVIS_ITS ---
Vital Signs 03/02/24 07:50 Height 5 ft 8 in Weight 221 lb 2 oz BMI 33.6 BP 122/80 Blood Pressure Location Rt brachial Position Sitting Respiration 16 Pulse 68 Pulse Source Pulse Oximeter Pulse Oximetry (%) 99 Oxygen Delivery Method Room Air Intake Visit Reasons: 6 mo f/u Neuralgia - LVM w/add Intake Note: Pt presents for 6 month follow up for trigeminal neuralgia. Storage Management Consultant Required: Yes Storage Management Consultant Services: Storage Management Consultant Present Storage Management Consultant Name: Tablet Allergies No Known Allergies Allergy (Verified 03/02/24 07:49) Medication List - Last Reconciled 03/02/24 by Madeline Baron MD aspirin 81 mg PO DAILY atorvastatin 80 mg PO DAILY carbamazepine ER 400 mg PO BID 90 days lisinopril 10 mg PO DAILY metoprolol succinate ER 25 mg PO DAILY HPI Comments Details: 73y/o Cuban speaking male comes for follow up of trigeminal neuralgia. 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 He is pain free for past 2 weeks but prior to that he had intermittent episodes inspite of compliance with medications. MRI brain with gildardo is normal. Labs were normal last year. It started about 1 1/2 years ago as an episodic pain but now it is a constant pain for past 4 months. He describes the pain as electric shock like pain in his left nasolabial area. The pain is worse when he touches , shaving, cold air, chewing, brushing his teeth etc. He went to a dentist - he did not think it was dental..He denies any double vision, speech issues, vertigo , dysphagia etc. He denies any tongue numbness. He has h/o MIKE on CPAP. He has h/o CVA - /30 years ago . [facility] Medical History Prostate cancer GERD (gastroesophageal reflux disease) MIKE on CPAP CAD (coronary artery disease) Hyperlipidemia CVA (cerebral vascular accident) HTN (hypertension) Myocardial infarction Surgical History Hx of appendectomy Family History Father Cancer Mother Hypertension Brother Cancer Social History Alcohol intake: never Patient Tobacco Use Status: Never used Tobacco Physical Exam Vital Signs: Last Vital Signs Pulse 68 03/02/24 07:50 Resp 16 03/02/24 07:50 BP 122/80 03/02/24 07:50 Pulse Ox 99 03/02/24 07:50 Oxygen Delivery Method Room Air 03/02/24 07:50 BMI result Body Mass Index 33.6 Const General: cooperative, healthy appearing and comfortable Nutritional Appearance: overweight Orientation/consciousness: patient oriented x3 Neuro Other: hyperesthesia in left upper lip, nasolabial area General: patient oriented x3, tone normal, moves all extremities and no focal motor deficits Cranial nerves: Yes Facial sensation intact/muscles of mastication intact, Yes Bilaterally intact EOM present, Yes Nystagmus not present, Yes Normal facial strength present, Yes Midline tongue present, Yes Symmetric palate elevation present and Yes Ability to bilaterally elevate shoulders present Cognition (Neuro): normal cognition Gait exam (Neuro): Normal gait present Motor exam (neuro): 5/5 motor strength present throughout and Normal motor muscle tone present throughout Coordination: [id number] test normal Assessment & Plan Assessment & Plan (1) Trigeminal neuralgia: Comment: left V 2 Code(s): G50.0 - Trigeminal neuralgia Category: Medical Plan Increase tegretol XR 400mg qama nd 400mg qhs and f/u will monitor sodium and CBC Orders: Orders Comprehensive Met. Panel Today G50.0 - Trigeminal neuralgia Complete Blood Count Auto Diff Today G50.0 - Trigeminal neuralgia Medications: Changed From carbamazepine ER (Tegretol XR) 1 tab qama nd 2 tabs qhs orally 2 times a day; 90 days 270 tabs 3RF To carbamazepine ER 400 mg PO BID 90 days 180 tabs 3RF Coding Level of Care Code Est Pt Level 4 (24386) Diagnoses Trigeminal neuralgia G50.0
[2024-03-02 07:50] VITALS: BP 122/80; PULSE 68; RESP 16; O2SAT 99; BMI 33.6
== END 2024-03-02 08:29 | disposition home or self-care (01) ==
PROVIDERS: Absent Provider Psychiatry & Neurology Neurology; Visit Provider Psychiatry & Neurology Neurology
DX: G50.0 Trigeminal neuralgia (principal)
CPT/HCPCS: 99214

== ENCOUNTER → 2024-03-02 07:42 | Outpatient (BNVA) | payer MEDICARE, SELFPAY | PROVIDERS: Absent Provider Psychiatry & Neurology Neurology; Visit Provider Psychiatry & Neurology Neurology | DX: Z13.89 Encounter for screening for other disorder (principal) | CPT/HCPCS: 99212 ==

== ENCOUNTER 2024-03-02 08:30 | Outpatient (REF) | payer MEDICARE, SELFPAY ==
[2024-03-02 17:37] LABS: MANUAL DIFF FLAG NO
[2024-03-02 18:12] LABS: Basophils Percent Auto 0.7 % (0-2); Eosinophils Absolute Auto 0.1 X10*3/uL (0.0-0.4); Eosinophils Percent Auto 1.8 % (0-4); Hemoglobin 13.5 g/dl (14.0-18.0); Imm Gran Abs Auto 0.01 X10*3/uL (0.00-0.03); Imm Gran Pct Auto 0.2 % (0.0-0.4); Lymphocytes Absolute Auto 1.2 X10*3/uL (1.2-4.9); Lymphocytes Percent Auto 27.2 % (20-40); Mean Corpuscular HGB Conc 35.5 g/dl (31.0-36.0); Mean Corpuscular Hemoglobin 32.5 pg (27.0-33.0); Mean Corpuscular Volume 91.6 fL (80.0-98.0); Mean Platelet Volume 9.5 fL (9.4-12.4); Monocytes Absolute Auto 0.4 X10*3/uL (0.1-1.2); Monocytes Percent Auto 8.4 % (2-11); Neutrophils Absolute Auto 2.8 x10*3/uL (2.0-8.3); Neutrophils Percent Auto 61.7 % (45-73); Platelet Count 145 X10*3/uL (160-400); Red Blood Count 4.15 X10*6/uL (4.60-5.80); Red Cell Distribution Width 12.6 % (11.0-16.0); White Blood Count 4.5 X10*3/uL (4.8-10.8)
[2024-03-02 18:27] LABS: Alanine Aminotransferase 21 U/L (0-40); Albumin Level 3.9 g/dL (3.5-5.0); Alkaline Phosphatase 101 U/L (39-117); Anion Gap 10 (12-20); Aspartate Amino Transferase 29 U/L (5-37); Bilirubin Total 0.3 mg/dL (0.0-1.0); Blood Urea Nitrogen 16 mg/dL (9-16); Calcium 9.2 mg/dL (8.4-10.2); Carbon Dioxide 25 mmol/L (22-29); Chloride 108 mmol/L (96-108); Estimated Glomerular Filt Rate > 60; Glucose Random 98 mg/dL (60-115); Sodium 139 mmol/L (135-145); Total Protein 6.9 g/dL (6.5-8.0)
== END 2024-03-02 08:31 | disposition home or self-care (01) ==
LOC: HO.HKASLDS 08:30
PROVIDERS: Visit Provider Psychiatry & Neurology Neurology
DX: G50.0 Trigeminal neuralgia (principal)
CPT/HCPCS: 36415; 80053; 85025; 99212

== ENCOUNTER 2024-09-20 08:07 | Outpatient (AMB) | payer MEDICARE, SELFPAY ==
[2024-09-20 08:15] VITALS: BP 144/82; PULSE 83; O2SAT 99; BMI 33.1
--- NOTE | 2024-09-20 08:15 | A.OFFVIS_ITS ---
Vital Signs 09/20/24 08:15 Height 5 ft 8 in Weight 218 lb BMI 33.1 BP 144/82 H Blood Pressure Location Rt brachial Position Sitting Pulse 83 Pulse Source Pulse Oximeter Pulse Oximetry (%) 99 Oxygen Delivery Method Room Air Intake Visit Reasons: 6m f/u Neuralgia Intake Note: patient presents for follow up. patient did not perform labs or attended PT he stated he works and didn't have time to do these. Allergies No Known Allergies Allergy (Verified 09/20/24 08:17) HPI Comments Details: 74y/o Malawian speaking male comes for follow up of trigeminal neuralgia. 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 He had dizziness and off balance with higher dose of tegretol. MRI brain with gildardo is normal. It started about 2 years ago as an episodic pain He describes the pain as electric shock like pain in his left nasolabial area. The pain is worse when he touches , shaving, cold air, chewing, brushing his teeth etc. He went to a dentist - he did not think it was dental..He denies any double vision, speech issues, vertigo , dysphagia etc. He denies any tongue numbness. He has h/o MIKE on CPAP. He has h/o CVA - /30 years ago . [facility] Medical History Prostate cancer GERD (gastroesophageal reflux disease) MIKE on CPAP CAD (coronary artery disease) Hyperlipidemia CVA (cerebral vascular accident) HTN (hypertension) Myocardial infarction Surgical History Hx of cataract surgery Hx of appendectomy Family History Father Cancer Mother Hypertension Brother Cancer Social History Alcohol intake: never Patient Tobacco Use Status: Never used Tobacco Physical Exam Vital Signs: Last Vital Signs Pulse 83 09/20/24 08:15 BP 144/82 H 09/20/24 08:15 Pulse Ox 99 09/20/24 08:15 Oxygen Delivery Method Room Air 09/20/24 08:15 BMI result Body Mass Index 33.1 Const General: cooperative, healthy appearing and comfortable Nutritional Appearance: overweight Orientation/consciousness: patient oriented x3 Neuro Other: hyperesthesia in left upper lip, nasolabial area General: patient oriented x3, tone normal, moves all extremities and no focal motor deficits Cranial nerves: Yes Facial sensation intact/muscles of mastication intact, Yes Bilaterally intact EOM present, Yes Nystagmus not present, Yes Normal facial strength present, Yes Midline tongue present, Yes Symmetric palate elevation present and Yes Ability to bilaterally elevate shoulders present Cognition (Neuro): normal cognition Gait exam (Neuro): Normal gait present Motor exam (neuro): 5/5 motor strength present throughout and Normal motor muscle tone present throughout Coordination: [id number] test normal Assessment & Plan Assessment & Plan (1) Trigeminal neuralgia: Comment: left V 2 Code(s): G50.0 - Trigeminal neuralgia Category: Medical Plan Continue tegretol XR 200mg qam and 400mg qhs and f/u will monitor sodium and CBC Orders: Orders Complete Blood Count Auto Diff Today G50.0 - Trigeminal neuralgia Comprehensive Met. Panel Today G50.0 - Trigeminal neuralgia Coding Level of Care Code Est Pt Level 4 (80830) Complex EM visit Add On G2211 Diagnoses Trigeminal neuralgia G50.0
== END 2024-09-20 08:40 | disposition home or self-care (01) ==
LOC: HO.HSMS 08:07
PROVIDERS: Visit Provider Psychiatry & Neurology Neurology
DX: G50.0 Trigeminal neuralgia (principal)
CPT/HCPCS: 99214; G2211

== ENCOUNTER → 2024-09-20 08:07 | Outpatient (BNVA) | payer MEDICARE, SELFPAY | PROVIDERS: Visit Provider Psychiatry & Neurology Neurology | DX: G50.0 Trigeminal neuralgia (principal) | CPT/HCPCS: 99212 ==

== ENCOUNTER 2025-03-24 08:03 | Outpatient (AMB) | payer MEDICARE, SELFPAY ==
[2025-03-24 08:05] VITALS: BP 140/82; PULSE 76; O2SAT 96; BMI 32.3
--- NOTE | 2025-03-24 08:05 | MHC.OFFVIS ---
Vital Signs 03/24/25 08:05 Height 5 ft 8 in Weight 212 lb 4 oz BMI 32.3 BP 140/82 H Blood Pressure Location Rt brachial Position Sitting Pulse 76 Pulse Source Pulse Oximeter Pulse Oximetry (%) 96 Oxygen Delivery Method Room Air Intake Visit Reasons: 6m f/u Neuralgia Intake Note: Follow up Trigeminal neuralgia Manager Medical Required: Yes Manager Medical Services: Manager Medical Offered & Declined Manager Medical Name: Daughter to interpret Accompanied by: Daughter Allergies No Known Allergies Allergy (Verified 03/24/25 08:05) Medication List - Last Reconciled 03/24/25 by Madeline Baron MD aspirin 81 mg PO DAILY atorvastatin 80 mg PO DAILY carbamazepine ER 400 mg PO BID 90 days lisinopril 10 mg PO DAILY metoprolol succinate ER 25 mg PO DAILY HPI Comments Details: 74y/o Senegalese speaking male comes for follow up of trigeminal neuralgia. He is on tegretol 400mg qhs. He decreased the dose from bid to qhs and says his severe pain has less frequent now.He was doing well but now reports moderate pain in left nasolabial fold. He uses his toothbrush he massages the inside of his cheek and says has a grayish discharge . After he spits discharge he feels better.He [place] snot seen a dentist . He denies any fever denies constant pain. History from 09/28-He had dizziness and off balance with higher dose of tegretol. MRI brain with gildardo is normal. It started about 2 years ago as an episodic pain He describes the pain as electric shock like pain in his left nasolabial area. The pain is worse when he touches , shaving, cold air, chewing, brushing his teeth etc. He went to a dentist - he did not think it was dental..He denies any double vision, speech issues, vertigo , dysphagia etc. He denies any tongue numbness. He has h/o MIKE on CPAP. He has h/o CVA - /30 years ago . [facility] Medical History Prostate cancer GERD (gastroesophageal reflux disease) MIKE on CPAP CAD (coronary artery disease) Hyperlipidemia CVA (cerebral vascular accident) HTN (hypertension) Myocardial infarction Surgical History Hx of cataract surgery Hx of appendectomy Family History Father Cancer Mother Hypertension Brother Cancer Social History Alcohol intake: never Patient Tobacco Use Status: Never used Tobacco Physical Exam Vital Signs: Last Vital Signs Pulse 76 03/24/25 08:05 BP 140/82 H 03/24/25 08:05 Pulse Ox 96 03/24/25 08:05 Oxygen Delivery Method Room Air 03/24/25 08:05 BMI result Body Mass Index 32.3 Const General: cooperative, healthy appearing and comfortable Nutritional Appearance: overweight Orientation/consciousness: patient oriented x3 Neuro Other: hyperesthesia in left upper lip, nasolabial area General: patient oriented x3, tone normal, moves all extremities and no focal motor deficits Cranial nerves: Yes Facial sensation intact/muscles of mastication intact, Yes Bilaterally intact EOM present, Yes Nystagmus not present, Yes Normal facial strength present, Yes Midline tongue present, Yes Symmetric palate elevation present and Yes Ability to bilaterally elevate shoulders present Cognition (Neuro): normal cognition Gait exam (Neuro): Normal gait present Motor exam (neuro): 5/5 motor strength present throughout and Normal motor muscle tone present throughout Coordination: [id number] test normal Assessment & Plan Assessment & Plan (1) Trigeminal neuralgia: Comment: left V 2 Code(s): G50.0 - Trigeminal neuralgia Category: Medical Plan Continue tegretol XR 400mg qhs and f/u will monitor sodium and CBC F/u with dentist Orders: Orders Complete Blood Count Auto Diff Today G50.0 - Trigeminal neuralgia Comprehensive Met. Panel Today G50.0 - Trigeminal neuralgia Coding Level of Care Code Est Pt Level 4 (37517) Complex EM visit Add On G2211 Diagnoses Trigeminal neuralgia G50.0
== END 2025-03-24 08:40 | disposition home or self-care (01) ==
LOC: HO.HSMS 08:04
PROVIDERS: Visit Provider Psychiatry & Neurology Neurology
DX: G50.0 Trigeminal neuralgia (principal)
CPT/HCPCS: 99214; G2211

== ENCOUNTER 2025-03-24 08:03 | Outpatient (REF) | payer MEDICARE, SELFPAY ==
--- OUTSIDE RECORDS SUMMARY | 2025-03-24 09:51 | XMS_ITS ---
Author Name [facility] Organization Unknown Care Team Organization Name Specialty Phone Email Start Date End Da te [facility] ACO 02/23/2025 [facility] Cathi [facility] 09/11/2022 02/23/2024 [facility] Termed, PROVIDER Primary Care 05/14/202202/04
--- OUTSIDE RECORDS SUMMARY | 2025-03-24 09:51 | XMS_ITS | Clinical Summary ---
Author Organization [facility] Address [address] [place] [address] Phone Care Team Providers Care Certified Juvenile Probation Officer Name Role Phone Cathi Ramírez MD Primary Care Prov ider Allergies No known active allergies Medications aspirin 81 mg EC tablet Take 1 tablet (81 mg total) by mouth 1 (one) time each day. Active ketorolac (ACULAR) 0.5 % ophthalmic solution 09/29/19 25 Active carBAMazepine XR (TEGretol XR) 400 mg 12 hr tablet Take 1 tablet (400 mg total) by mouth 2 (two) times a day. 09/28/19 25 Active lisinopriL (PRINIVIL,ZEST RIL) 10 mg tablet Take 1 tablet (10 mg total) by mouth 1 (one) time each day. 90 each 3 10/05/19 25 026 Active atorvastatin (LIPITOR) 80 mg tablet TAKE ONE TABLET BY MOUTH EVERY DAY 90 tablet 1 02/02/20 25 Active famotidine (PEPCID) 20 mg tablet Take 1 tablet (20 mg total) by mouth 1 (one) time each day. 90 tablet 1 02/18/20 25 Active umeclidinium-v ilanteroL (Anoro Ellipta) 62.5-25 mcg/actuation inhaler Inhale 1 puff by mouth 1 (one) time each day. 1 each 03/01/20 25 026 Active albuterol HFA (PROAIR HFA ; PROVENTIL HFA ; VENTOLIN HFA) 90 mcg/actuation inhaler Inhale 2 puffs by mouth every 6 (six) hours if needed for wheezing or shortness of breath. 1 each 03/01/20 25 026 Active metoprolol succinate (TOPROL-XL) 25 mg 24 hr tablet Take 1 tablet (25 mg total) by mouth 1 (one) time each day. 90 tablet 1 03/09/20 25 Active metoprolol succinate (TOPROL-XL) 25 mg 24 hr tablet TAKE ONE TABLET BY MOUTH EVERY DAY 90 tablet 1 09/09/19 25 025 Discontinued Active Problems Problem Noted Date Diagnosed Date Abnormal radiologic density 07/21/2024 Cerebral infarction ([facility] V24, [facility] V28) 1 Overview (04/08/2024): IMO update Class 1 obesity due to exces s calories with serious comorbidity and body mass index (BMI) of 34.0 to 34.9 in adult 04/08/2024 Chest pain 02/13/2022 Assessment & Plan (08/19/2024 1:56 PM EST): Patient is describing left arm numbness that happened mostly at night. This is not of itself does not seem anginal, however prior to his stent to the LAD his symptom was bilateral arm numbness. I will update a nuclear stress test for ischemia. Of note patient just underwent cardiac surgery and has to wear glasses indoors, could be a fall risk so we will do pharmacological stress test. Orders: Nuclear stress test with myocardial perfusion; Future Cough 02/13/2022 History of MS (myocardial infarction) 02/13/2022 SOB (shortness of breath) 02/13/2022 Assessment & Plan (02/17/2025 8:11 AM EDT): Likely multifactorial. 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 Going to update an echocardiogram as well as pulmonary function test. COVID-19 virus detected 07/19/2021 Prostate CA ([facility] V24, [facility] V28) 0 Class 1 obesity 06/08/2018 Elevated fasting glucose 01/28/2018 Gastroesophageal reflux disease with esophagitis 01/26/2018 HTN (hypertension) 01/26/2018 Assessment & Plan (02/17/2025 8:12 AM EDT): Slightly elevated at the appointment today. Would like the patient to try and take some blood pressure measurements at home and reach out if they are consistently elevated. For now continue on lisinopril 10 mg p.o. daily and metoprolol 25 mg p.o. daily. Educated on the importance of diet lifestyle to help further assist in reducing blood pressure. The patient was encouraged to follow low-salt low-fat diet, make purposeful strides towards weight loss, and engage in routine aerobic exercise as tolerated. Assessment & Plan (10/04/2024 9:16 AM EDT): Orders: Lipid panel with reflex to direct LDL; Future Assessment & Plan (08/19/2024 1:56 PM EST): Blood pressure is at target. Continue on current medication regiment.Educated on the importance of diet lifestyle to help further assist in reducing blood pressure. The patient was encouraged to follow low-salt low-fat diet, make purposeful strides towards weight loss, and engage in routine aerobic exercise as tolerated. Coronary artery disease invo lving big lagoon coronary artery of big lagoon heart without angina pectoris 04/30/2017 Overview (02/17/2025): Patient had a nuclear stress test on 09/2024 that was a normal nuclear perfusion test. LV perfusion was normal. Stress ejection fraction was 66%. Heavy LAD calcifications were noted on the CT scan. Assessment & Plan (02/17/2025 8:11 AM EDT): Patient had recent updated nuclear stress test that was normal. He is reporting some shortness of breath with above average workload. I think that this is multifactorial. Going to update an echocardiogram to look for ischemia. Patient should continue on with the metoprolol, baby aspirin, and high-dose atorvastatin. Instructed to call 911 or go to the emergency room should the patient begin to experience chest pain or pressure lasting greater than 10 minutes does not resolve with rest. Assessment & Plan (10/04/2024 3:01 PM EDT): Assessment & Plan (08/19/2024 1:56 PM EST): Going to update a nuclear stress test. Patient is utilizing a beta-isabelle metoprolol in addition to baby aspirin and statin. Instructed to call 911 or go to the emergency room should the patient begin to experience chest pain or pressure lasting greater than 10 minutes does not resolve with rest. Hyperlipidemia 04/30/2017 Assessment & Plan (02/17/2025 8:12 AM EDT): Most recent LDL at 80. Would like to be at 70 or below, spoke to patient about adhering to a healthy cardiac diet. Currently utilizing the high-dose atorvastatin, patient is unable to be a target after next lipid panel would add ezetimibe 10 mg p.o. daily. Assessment & Plan (10/04/2024 3:01 PM EDT): Assessment & Plan (08/19/2024 1:56 PM EST): LDL is at target. Continue on current medication regimen. Vitamin D deficiency 01/15/2017 Obstructive sleep apnea 07/26/2013 Overview (04/08/2024): [facility] Home Polysomnogram: Date 02/09/2018; AHI 40, Unclassified apneas 190; Obstructive apneas 20; Central apneas 7; Mixed apneas 0; hypopneas 70; average oxygen saturation 94% (lowest 78% with saturations <88% for 5% or more of study) - Obstructive Sleep Apnea - severe; mostly unclassified apneas with hypopneas; with sleep related hypoventilation by 2018 home polysomnogram. Encounters Date Type Department Care Team Description 03/08/2025 Telephone Pulmonology - [place] [facility] [address] [place] [address] Cecile Yi MA 03/01/2025 11:45 AM EDT Office Visit Pulmonolgy - [place] [facility] [address] [place] [address] Paola Adler MD COPD with asthma ([facility] V24, [facility] V28) (Primary Dx); Abnormal chest CT; Lung nodules; Hilar adenopathy; MIKE (obstructive sleep apnea); TB lung, latent; Monterroso's esophagus without dysplasia 02/17/2025 7:40 AM EDT Office Visit [facility] [address] [facility] [address] [place] [address] Rashawn Crum NP Coronary artery disease involving big lagoon coronary artery of big lagoon heart without angina pectoris (Primary Dx); OLIVEIRA (dyspnea on exertion); Hypertension, unspecified type; Mixed hyperlipidemia; SOB (shortness of breath) 02/10/[facility] [address] [place] [phone] Leisa Sewell MA 02/03/2025 8:53 AM EDT - 02/03/2025 11:59 PM EDT Hospital Encounter [facility] CT Scan [address] [place] [phone] Discharge Disposition: Home or Self Care 02/01/2025 Telephone [facility] [address] [facility] [address] [place] [address] Cara Quintanilla MD 01/27/2025 9:00 AM EDT Lab Draw Station - [address] [facility] [address] [facility] [place] [phone] Abnormal chest CT 01/26/2025 [facility] [address] [place] [phone] Mónica Villatoro MA from Last 3 Months Immunizations Name Administration Dates Next Due Pneumococcal conjugate 13 va lent (Prevnar 13, PCV13) 2mo and older 01/15/2017 Pneumococcal polysaccharide 23 valent (Pneumovax 23) 2yo and older 05/05/2018 Tdap Tetanus diptheria acell ular pertussis (Boostrix; Adacel) 7yo and older 01/15/2017 Surgical History Surgery Date Site/Laterality Comments APPENDECTOMY PROCEDURE: TN APPENDEC INDICATED PURPOSE OTH MAJOR PX NOT SPX COLONOSCOPY 09/01/2014 PROCEDURE: HISTORICAL COLONOSCOPY; COMMENT: Diverticulosis and Hemorrhoids UPPER GASTROINTESTINAL ENDOSCOPY 04/14/2018 PROCEDURE: TN UPPER GI ENDOSCOPY PERFORMED; COMMENT: GERD Medical History Medical History Date Comments CVA (cerebral infarction) DX:CVA (cerebral infarction); COMMENT: x2; left side of face feels numb. MIKE (obstructive sleep apnea) DX :MIKE (obstructive sleep apnea); COMMENT: severe Essential hypertension DX:Essent ial hypertension Coronary artery disease invo lving big lagoon coronary artery of big lagoon heart without angina pectoris 04/30/2017 DX:Coronary artery disease i nvolving big lagoon coronary artery of big lagoon heart without angina pectoris GERD (gastroesophageal reflux disease) DX:GERD (gastroesophageal reflux disease) Hyperlipidemia DX:Hyperlipidemi a Thyromegaly DX:Thyromegaly Monterroso's esophagus DX:Monterroso's esophagus Monterroso's esophagus DX:Monterroso's esophagus Family History Medical History Relation Name Comments No Known Problems Aunt Prostate cancer Brother 1 Prostate cancer Brother 2 Colon cancer Father Other cancer Father radiation expos ure d[place] No Known Problems Maternal Grandfather No Known Problems Maternal Grandmother Hypertension Mother No Known Problems Other No Known Problems Paternal Grandfather No Known Problems Paternal Grandmother No Known Problems Sister No Known Problems Uncle Blindness Neg Hx Cataracts Neg Hx Glaucoma Neg Hx Macular degeneration Neg Hx Strabismus Neg Hx Relation Name Status Comments Aunt Brother 1 Brother 2 Father Maternal Grandfather Maternal Grandmother Mother Other Paternal Grandfather Paternal Grandmother Sister Uncle Social History Tobacco Use Types Packs/Day Years Used Date Smoking Tobacco: Never Passive Smoke Exposure: Never Smokeless Tobacco: Never Tobacco Cessation:Counseling Given: Not Answered Alcohol Use Standard Drinks/Week Comments Not Currently 0 (1 standard drink = 0.6 oz pur e alcohol) Sex and Gender Information Value Date Recorded Sex Assigned at Male 07/27/2024 10:58 AM EST Legal Sex Male 1:53 AM EST Gender Identity Male 07/27/2024 10:58 AM EST Sexual Orientation Straight 07/27/2024 10 :58 AM EST Obstetrics History Last Filed Vital Signs Vital Sign Reading Time Taken Comments Blood Pressure 129/70 03/01/2025 11:34 AM EDT Pulse 73 03/01/2025 11:34 AM EDT Temperature 36 C (96.8 F) 03/01/2025 11:34 AM EDT Respiratory Rate 16 10/04/2024 8:47 AM EDT Oxygen Saturation 98% 03/01/2025 11:34 AM EDT Inhaled Oxygen Concentration - - Weight 96.6 kg (213 lb) 03/01/2025 11:34 AM EDT Height 170.2 cm (5' 7 ) 02/17/2025 7:45 AM EDT Body Mass Index 33.36 02/17/2025 7:45 AM EDT Plan of Treatment Upcoming Encounters Date Type Department Care Team (Late st Contact Info) Description 03/29/2025 8:00 AM EDT Consult Pulmonology - [place] [address] [facility] [address] [place] [phone] Candelaria Negron MD [address] [place] [address] 03/30/2025 8:30 AM EDT Appointment [facility] Pulmonary [address] [place] [phone] 04/12/2025 12:00 PM EDT Office Visit Adult Medicine [facility] [address] [place] [address] Cathi Ramírez MD [address] [place], [place] 05/19/2025 8:00 AM EST Ancillary Procedure [facility] [address] [facility] [address] [place] [phone] 06/07/2025 8:30 AM EST Office Visit Pulmonolgy - [place] [address] [facility] [address] [place] [phone] Paola Adler MD 175 [facility] [address] [place] [address] 08/03/2025 8:30 AM EST Office Visit Gastroenterology - [place] 175 [facility] [address] [facility] [address] [place] [phone] Waleska Che PA [address] [place] [address] [address] [place] [address] Health Maintenance Due Date Last Done Comments COVID-19 Vaccine (#1) 1955 Zoster Vaccines (1 of 2) 1969 RSV Immunization Adult Patients (1 - Risk 60-74 years 1-dose series) 2010 Social Influencers of Health Screening 06/15/2022 Medicare Annual Wellness Visit 04/11/2024 04/11/2023 Depression Screening 07/07/2024 04/11/2023 Falls Risk Assessment 08/12/2024 08/12/2023 Colorectal Cancer Screening: Colonoscopy 09/01/2024 09/01/2014 Influenza Vaccine (#1) 2025 Hypertension/CHF/CAD Annual BMP Blood Test 01/27/2026 01/27/2025, 08/13/2023 DTaP,Tdap,and Td Vaccines (2 - Td or Tdap) 01/15/2027 01/15/2017 Cholesterol Screening (Lipid Panel) 10/06/2029 10/06/2024, 08/13/2023 Hepatitis C Screening Completed 05/24/2013 Pneumococcal Vaccine: 50+ Years Completed 05/05/2018, 01/15/2017 HIB Vaccines Aged Out No longer eligi ble based on patient's age to complete this topic HPV Vaccines Aged Out No longer eligi ble based on patient's age to complete this topic Hepatitis A Vaccines Aged Out No long er eligible based on patient's age to complete this topic Hepatitis B Vaccines Aged Out No long er eligible based on patient's age to complete this topic IPV Vaccines Aged Out No longer eligi ble based on patient's age to complete this topic MMR Vaccines Aged Out No longer eligi ble based on patient's age to complete this topic Meningococcal ACWY Vaccine Aged Out N o longer eligible based on patient's age to complete this topic Meningococcal B Vaccine Aged Out No l onger eligible based on patient's age to complete this topic RSV Immunization Patients Under 20 months Aged Out No longer eligible b ased on patient's age to complete this topic Varicella Vaccines Aged Out No longer eligible based on patient's age to complete this topic Procedures Procedure Name Priority Date/Time Associated Diagnosis Comments CT CHEST W CONTRAST Routine 02/03/2025 9 :11 AM EDT Abnormal chest CT BASIC METABOLIC PANEL Routine 01/27/2025 8:19 AM EDT Abnormal chest CT LIPID PANEL WITH REFLEX TO DIRECT LDL Routine 10/06/2024 7:49 AM EDT Primary hypertension FALLS RISK ASSESSMENT Routine 08/12/2023 DEPRESSION SCREENING Routine 04/11/2023 COLONOSCOPY Routine 09/01/2014 HEPATITIS C SCREENING Routine 05/24/2013 from Last 3 Months or Most Recently Relevant to Health Maintenance Results * CT Chest w Contrast (02/03/2025 9:11 AM EDT) Anatomical Region Laterality Modality Body Computed Tomogra phy 02/08/2025 11:4 2 AM EDT Impressions 02/08/2025 12:03 PM EDT Impression: 1. No significant change in multiple bilateral pulmonary nodules since 07/30/24, the largest 7 mm. 2. Persistent extensive bilateral hilar lymphadenopathy, with confluent lymphoid tissue seen throughout both debby, measuring up to 18 mm short axis. [employer] PA ([id number]) -------- FINAL REPORT -------- Dictated By: Rebecca Rasmussen Dictated Date: 02/08/2025 11:42 ET Assigned Physician: Rebecca Rasmussen Reviewed and Electronically Signed By: Rebecca Rasmussen Signed Date: 02/08/2025 12:03 ET Workstation ID: [id number] Transcribed By: Self Edit Transcribed Date: 02/08/2025 11:42 ET Narrative 02/08/2025 12:03 PM EDT History: Follow-up pulmonary nodule, greater than 8 mm. Comparison: 07/30/24 Technique: Helical volumetric imaging of the thorax was performed during the uneventful intravenous administration of 90 cc Isovue-370. DLP: 485.28 mGy/cm hipix Iterative reconstruction technique Findings: The trachea and central bronchial tree remain patent. Thin curvilinear bandlike opacity in the right lower lobe is compatible with subsegmental atelectasis, unchanged. Solid pulmonary nodules include 3 mm, 7 mm, and a 2 mm perifissural nodules in the right lung (images 144, 159, and 163 series 3), a 7 mm nodule at the base of the right lower lobe (image 241), a 4 mm right lower lobe nodule (image 201), two 3 mm right middle lobe nodules (images 191 and 198) and a 4 mm left lower lobe nodule (image 199), all without significant change. No pleural or pericardial effusions are seen. The heart remains normal in size. Mitral annulus calcification is noted and there is three-vessel coronary artery calcification. Bilateral hilar lymphadenopathy is again seen, the largest a confluent mata mass in the right inferior hilum measuring up to 18 mm short axis. Borderline distal paraesophageal lymph nodes are seen, without significant change. A small portion of the upper abdomen included on the lowest images through the thorax is without significant abnormality. Thoracic disc degenerative changes are noted, with discogenic sclerosis of multiple vertebral endplates, without significant change. Procedure Note Rebecca Rasmussen MD - 02/08/2025 History: Follow-up pulmonary nodule, greater than 8 mm. Comparison: 07/30/24 Technique: Helical volumetric imaging of the thorax was performed duringthe uneventful intravenous administration of 90 cc Isovue-370. DLP: 485.28 mGy/cm [employer] Iterative reconstruction technique Findings: The trachea and central bronchial tree remain patent. Thin curvilinearbandlike opacity in the right lower lobe is compatible with subsegmentalatelectasis, unchanged. Solid pulmonary nodules include 3 mm, 7 mm, and a 2 mm perifissuralnodules in the right lung (images 144, 159, and 163 series 3), a 7 mmnodule at the base of the right lower lobe (image 241), a 4 mm right lowerlobe nodule (image 201), two 3 mm right middle lobe nodules (images 191and 198) and a 4 mm left lower lobe nodule (image 199), all withoutsignificant change. No pleural or pericardial effusions are seen. The heart remains normal in size. Mitral annulus calcification is notedand there is three-vessel coronary artery calcification. Bilateral hilar lymphadenopathy is again seen, the largest a confluentnodal mass in the right inferior hilum measuring up to 18 mm short axis.Borderline distal paraesophageal lymph nodes are seen, without significantchange. A small portion of the upper abdomen included on the lowest images throughthe thorax is without significant abnormality. Thoracic disc degenerative changes are noted, with discogenic sclerosis ofmultiple vertebral endplates, without significant change. IMPRESSION: Impression: 1. No significant change in multiple bilateral pulmonary nodules since07/30/24, the largest 7 mm. 2. Persistent extensive bilateral hilar lymphadenopathy, with confluentlymphoid tissue seen throughout both debby, measuring up to 18 mm shortaxis. [place] PA ([id number]) -------- FINAL REPORT -------- Dictated By: Rebecca Rasmussen Dictated Date: 02/08/2025 11:42 ET Assigned Physician: Rebecca Rasmussen Reviewed and Electronically Signed By: Rebecca Rasmussen Signed Date: 02/08/2025 12:03 ET Workstation ID: [id number] Transcribed By: Self Edit Transcribed Date: 02/08/2025 11:42 ET Paola Adler MD IM CT PROCEDURES Final Result * (ABNORMAL) Basic metabolic panel (01/27/2025 8:19 AM EDT) Sodium 139 133 - 145 mmol/L LAB CHEMISTRY METHOD 01/27/2025 9:19 AM [facility] Potassium 4.3 3.5 - 5.5 mmol/L LAB CHEMISTRY METHOD 01/27/2025 9:19 AM [facility] Chloride 108 96 - 110 mmol/L LAB CHEMISTRY METHOD 01/27/2025 9:19 AM [facility] CO2 27 21 - 32 mmol/L LAB CHEMISTRY METHOD 01/27/2025 9:19 AM [facility] Anion Gap 4 3 - 11 LAB CHEMISTRY METHOD 01/27/2025 9:19 AM [facility] Glucose 175(H) 70 - 100 mg/dL LAB CHEMISTRY METHOD 01/27/2025 9:19 AM EDT [facility] BUN 19 5 - 25 mg/dL LAB CHEMISTRY METHOD 01/27/2025 9:19 AM EDT [facility] Creatinine 0.98 0.70 - 1.30 mg/dL LAB CHEMISTRY METHOD 01/27/2025 9:19 AM EDT [facility] eGFR 81 >=60 mL/min/1. 73m2 LAB CHEMISTRY METHOD 01/27/2025 9:19 AM T [facility] Comment:Calculation based on the Chronic Kidney Disease Epidemiology Collaboration (CKD-EPI) equation refit without adjustment for race. BUN/Creatinine Ratio 19.4 LAB CHEMISTRY METHOD 01/27/2025 9:19 AM [facility] Calcium 8.5 8.5 - 10.5 mg/dL LAB CHEMISTRY METHOD 01/27/2025 9:19 AM [facility] Blood Venous blood specimen / Unknown Venipuncture / Unknown 01/27/2025 8:19 AM EDT 01/27/2025 8:47 AM EDT Paola Adler MD LAB BLOOD ORDERABLES Final Resul t [facility] [address] [place] [address], * Lipid panel with reflex to direct LDL (10/06/2024 7:49 AM EDT) Cholesterol 160 0 - 200 mg/dL LAB CHEMISTRY METHOD 10/06/2024 11:51 AM T [facility] Triglycerides 70 0 - 150 mg/dL LAB CHEMISTRY METHOD 10/06/2024 11:51 AM [facility] HDL 66 >=40 mg/dL LAB CHEMISTRY METHOD 10/06/2024 11:51 AM T [facility] LDL Calculated 80 0 - 100 mg/dL LAB CHEMISTRY METHOD 10/06/2024 11:51 AM EDT [facility] VLDL Cholesterol Jonathon 14 mg/dL LAB CHEMISTRY METHOD 10/06/2024 11:51 AM EDT [facility] Non HDL Chol. (LDL+VLDL) 94 <145 mg/dL LAB CHEMISTRY METHOD 10/06/2024 11:51 AM EDT [facility] Chol/HDL Ratio 2.4 0.0 - 4.4 LAB CHEMISTRY METHOD 10/06/2024 11:51 AM EDT [facility] Blood Venous blood specimen / Unknown Venipuncture / Unknown 10/06/2024 7:49 AM EDT 10/06/2024 7:49 AM EDT Cathi Ramírez MD LAB BLOOD ORDERABL ES Final Result [facility] [address] [place] [address], * Falls Risk Assessment (08/12/2023) [facility] Falls Risk Assessment abstracted Historical Provider HEALTH MAINTENANCE Final Result * Depression Screening (04/11/2023) Pathologist [facility] Depression Screening abstracted [facility] Provider HEALTH MAINTENANCE Final Result * Colonoscopy (09/01/2014) Pathologist [facility] Colonoscopy no interpretation , abstracted Anatomical Region Laterality Modality Other Historical Provider HEALTH MAINTENANCE Final Result * Hepatitis C Screening (05/24/2013) Pathologist [facility] Hepatitis C Screening abstracted Historical Provider HEALTH MAINTENANCE Final Result from Last 3 Months or Most Recently Relevant to Health Maintenance Insurance MEDICARE Care Teams Certified Juvenile Probation Officer Relationship Specialty Start Date End Date Cathi Ramírez MD [address] [place] [phone] PCP - General Internal Medicine 05/06/24
[2025-03-24 13:32] LABS: MANUAL DIFF FLAG NO
[2025-03-24 13:41] LABS: Hematocrit 37.4 % (42.0-52.0); Hemoglobin 12.7 g/dl (14.0-18.0); Imm Gran Abs Auto 0.00 X10*3/uL (0.00-0.03); Imm Gran Pct Auto 0.0 % (0.0-0.4); Lymphocytes Absolute Auto 0.9 X10*3/uL (1.2-4.9); Mean Corpuscular HGB Conc 34.0 g/dl (31.0-36.0); Mean Corpuscular Hemoglobin 31.7 pg (27.0-33.0); Mean Corpuscular Volume 93.3 fL (80.0-98.0); NRBC Abs Auto 0.000 X10*3/uL (0.0-0.012); NRBC Pct Auto 0.0 /100WBC (0.0-0.2); Platelet Count 149 X10*3/uL (160-400); Red Blood Count 4.01 X10*6/uL (4.60-5.80); White Blood Count 3.4 X10*3/uL (4.8-10.8)
[2025-03-24 14:05] LABS: Alanine Aminotransferase 16 U/L (0-40); Albumin Level 4.0 g/dL (3.5-5.0); Alkaline Phosphatase 113 U/L (39-117); Anion Gap 10 (12-20); Aspartate Amino Transferase 30 U/L (5-37); Blood Urea Nitrogen 19 mg/dL (9-16); Calcium 8.9 mg/dL (8.4-10.2); Carbon Dioxide 27 mmol/L (22-29); Chloride 107 mmol/L (96-108); Estimated Glomerular Filt Rate > 60; Potassium 4.4 mmol/L (3.3-5.1); Sodium 140 mmol/L (135-145); Total Protein 6.9 g/dL (6.5-8.0)
== END 2025-03-24 08:04 | disposition home or self-care (01) ==
LOC: HO.HKASLDS 08:03
PROVIDERS: Visit Provider Psychiatry & Neurology Neurology
DX: G50.0 Trigeminal neuralgia (principal); Z79.82 Long term (current) use of aspirin
CPT/HCPCS: 36415; 80053; 85025; 99212